=== PATIENT | female | born 1950 | race Caucasian/White ===

== ENCOUNTER 2018-04-19 16:28 | Inpatient (IN) | payer OTHER ==
[~2018-04-19] VITALS: Ht 165.1 cm; Wt 45.8 kg
[~2018-04-19 16:28] MED LIST: CIMETIDINE PO; CLA10 PO; CLONAZEPAM PO; DIT5 PO; DUR75P TOP; EFF75 PO; KLO0.5 PO; MELATONIN10 MG PO; OXYCODONE AND A1 TA3 PO; SOM350 PO; VENLAFAXINE150 MG PO; [UNRECOGNIZED DRUG - CODE] PO
[2018-04-19 16:48] VITALS: Ht 165.1 cm; Wt 45.8 kg
[2018-04-19 19:24] LABS: CALCIUM 9.7 mg/dL (8.5-10.1); CARBON DIOXIDE 29.9 mmol/L (21-32); CHLORIDE SERUM 99 mmol/L (98-107); CREATININE SERUM 0.5 mg/dL (0.6-1.0); GFR1 > 60 mL/min; GLUCOSE SERUM 97 mg/dL (74-106); POTASSIUM SERUM 4.4 mmol/L (3.5-5.1); SODIUM SERUM 136 mmol/L (136-145)
[2018-04-19 19:26] LABS: BASOPHIL % 0.5 % (0-2); PLATELET COUNT 194 x10^3mcL (130-400); RED CELL DISTRIBUTION WIDTH 12.9 % (11.5-14.5)
[2018-04-19 19:29] LABS: ALKALINE PHOSPHATASE 102 U/L (46-116); AST/SGOT 23 U/L (15-37); BILIRUBIN TOTAL 0.57 mg/dL (0.20-1.00)
[2018-04-19 19:39] LABS: ALT/SGPT 22 U/L (14-59)
[2018-04-19 19:40] LABS: TOTAL PROTEIN, SERUM 8.4 g/dL (6.4-8.2)
[2018-04-19 20:27] LABS: UA SPECIFIC GRAVITY <=1.005 (1.005-1.035); microscopic required? YES; urine erythrocyte 1+ (NEGATIVE)
[2018-04-19 20:35] LABS: AMPHETAMINE QUAL UR NONE DETECTED (See below)
[2018-04-19] MEDS ORDERED: CYMBALTA20 M1 PO (20:37)
[2018-04-19] MEDS ORDERED: VENLAFAXINE25 MG PO (20:37)
[2018-04-19 20:41] LABS: T3 TOTAL 0.75 ng/mL
[2018-04-19 21:04] LABS: MAGNESIUM 2.3 mg/dL (1.8-2.4); PHOSPHOROUS 3.4 mg/dL (2.5-4.9)
[2018-04-19 21:11] LABS: CHOLESTEROL/HDL RATIO 2.9
[2018-04-19 21:15] VITALS: BP 123/76
[2018-04-19 21:16] LABS: FREE T4 1.01 ng/dL (0.76-1.46); FREE THYROXINE INDEX 2.5 ug/dL (1.4-4.5); T4(THYROXINE) 8.2 ug/dL (4.7-13.3)
[2018-04-20 05:16] VITALS: BP 91/58
[2018-04-20 06:47] LABS: CALCIUM 8.3 mg/dL (8.5-10.1); CARBON DIOXIDE 28.7 mmol/L (21-32); CHLORIDE SERUM 106 mmol/L (98-107); CREATININE SERUM 0.5 mg/dL (0.6-1.0); GFR1 > 60 mL/min; GLUCOSE SERUM 82 mg/dL (74-106); MAGNESIUM 2.1 mg/dL (1.8-2.4); PHOSPHOROUS 3.4 mg/dL (2.5-4.9); SODIUM SERUM 140 mmol/L (136-145)
[2018-04-20 07:06] LABS: BASOPHIL % 0.5 % (0-2); PLATELET COUNT 160 x10^3mcL (130-400); RED CELL DISTRIBUTION WIDTH 13.2 % (11.5-14.5)
[2018-04-20 10:09] VITALS: BP 103/63
[2018-04-20 17:00] VITALS: BP 108/65
[2018-04-20 21:40] VITALS: BP 95/57
[2018-04-21 05:51] VITALS: BP 114/63
[2018-04-21 08:24] LABS: BASOPHIL % 0.8 % (0-2); PLATELET COUNT 154 x10^3mcL (130-400); RED CELL DISTRIBUTION WIDTH 13.2 % (11.5-14.5)
[2018-04-21 08:37] LABS: CALCIUM 8.3 mg/dL (8.5-10.1); CARBON DIOXIDE 30.1 mmol/L (21-32); CHLORIDE SERUM 108 mmol/L (98-107); CREATININE SERUM 0.5 mg/dL (0.6-1.0); GFR1 > 60 mL/min; GLUCOSE SERUM 79 mg/dL (74-106); POTASSIUM SERUM 4.1 mmol/L (3.5-5.1); SODIUM SERUM 144 mmol/L (136-145)
[2018-04-21 09:34] VITALS: BP 118/69
[2018-04-21 17:42] VITALS: BP 129/84
[2018-04-21 21:04] VITALS: BP 116/80
[2018-04-22 05:21] VITALS: BP 114/63
[2018-04-22 07:35] LABS: BASOPHIL % 0.7 % (0-2); CALCIUM 8.8 mg/dL (8.5-10.1); CARBON DIOXIDE 31.6 mmol/L (21-32); CHLORIDE SERUM 106 mmol/L (98-107); CREATININE SERUM 0.5 mg/dL (0.6-1.0); GFR1 > 60 mL/min; GLUCOSE SERUM 71 mg/dL (74-106); PLATELET COUNT 192 x10^3mcL (130-400); POTASSIUM SERUM 4.2 mmol/L (3.5-5.1); RED CELL DISTRIBUTION WIDTH 12.9 % (11.5-14.5); SODIUM SERUM 143 mmol/L (136-145)
[2018-04-22 08:31] VITALS: BP 99/63
[2018-04-22] MEDS ORDERED: EFF75 PO (13:00)
[2018-04-22] MEDS ORDERED: LAC PO (13:01)
[2018-04-22] MEDS ORDERED: KEFLEX500 M1 PO (13:02)
[2018-04-22 13:20] VITALS: BP 107/69
[2018-04-22 13:50] VITALS: BP 100/67
[2018-04-22] MEDS ORDERED: DOXYCYCLINE HY100 MG PO (14:20)
== END 2018-04-22 15:30 | disposition home or self-care (01) | DRG 602 ==
LOC: ED 16:28 → MU 19:36 → DU 04-21 13:30
PROVIDERS: Emergency Medicine; Family Medicine
DX: L03.115 Cellulitis of right lower limb (principal); N17.0 Acute kidney failure with tubular necrosis; Z68.1 Body mass index [BMI] 19.9 or less, adult; N39.0 Urinary tract infection, site not specified; R31.9 Hematuria, unspecified; F32.9 Major depressive disorder, single episode, unspecified; M19.90 Unspecified osteoarthritis, unspecified site; G47.00 Insomnia, unspecified; R32 Unspecified urinary incontinence
CPT/HCPCS: 83880; 84439; J0690; J0696; J3370; J7030; J7050; Q0092

== ENCOUNTER → 2018-05-26 | Outpatient (CLI) | payer OTHER ==
[~2018-05-26] MED LIST changes: +CYMBALTA20 M1 PO; +DOXYCYCLINE HY100 MG PO; +KEFLEX500 M1 PO; +LAC PO; +VENLAFAXINE25 MG PO
== END | disposition home or self-care (01) ==
LOC: RD 12:04
DX: R91.8 Other nonspecific abnormal finding of lung field (principal)

== ENCOUNTER 2019-01-22 14:07 | Emergency (ER) | payer OTHER ==
[~2019-01-22] VITALS: Ht 165.1 cm; Wt 40.8 kg
[2019-01-22 14:14] VITALS: Ht 165.1 cm; Wt 40.8 kg
[2019-01-22 16:15] LABS: CALCIUM 8.9 mg/dL (8.5-10.1); CARBON DIOXIDE 29.3 mmol/L (21-32); CHLORIDE SERUM 99 mmol/L (98-107); CREATININE SERUM 0.6 mg/dL (0.6-1.0); GFR1 > 60 mL/min; GLUCOSE SERUM 88 mg/dL (74-106); SODIUM SERUM 136 mmol/L (136-145)
[2019-01-22 16:19] LABS: ALBUMIN 3.6 g/dL (3.4-5.0); ALKALINE PHOSPHATASE 64 U/L (46-116); ALT/SGPT 23 U/L (14-59); AST/SGOT 26 U/L (15-37); BASOPHIL % 0.2 % (0-2); BILIRUBIN TOTAL 0.48 mg/dL (0.20-1.00); PLATELET COUNT 178 x10^3mcL (130-400); RED CELL DISTRIBUTION WIDTH 13.3 % (11.5-14.5); TOTAL PROTEIN, SERUM 6.7 g/dL (6.4-8.2)
[2019-01-22 17:07] VITALS: BP 114/72
== END 2019-01-22 17:07 | disposition short-term general hospital (02) ==
LOC: ED 14:07
PROVIDERS: Emergency Medicine
DX: S72.092A Other fracture of head and neck of left femur, initial encounter for closed fracture (principal); F32.9 Major depressive disorder, single episode, unspecified; M19.90 Unspecified osteoarthritis, unspecified site; Z88.2 Allergy status to sulfonamides; Z98.890 Other specified postprocedural states; W18.39XA Other fall on same level, initial encounter; Y93.89 Activity, other specified; Y92.89 Other specified places as the place of occurrence of the external cause; Y99.8 Other external cause status
CPT/HCPCS: J2270; J2405; J7030